=== PATIENT | male | born 1960 | race Two or more races ===

== ENCOUNTER 2017-11-30 13:38 | Emergency (ER) | payer OTHER ==
[~2017-11-30] VITALS: Ht 185.4 cm; Wt 97.1 kg
[~2017-11-30 13:38] MED LIST: ASA325 MG PO; COZAAR100 MG; COZAAR50 MG PO; HYZAAR 100-12.1 EACH PO; NORVASC5 MG; NORVASC5 MG PO; ULTRACET PO
== END 2017-11-30 20:51 | disposition home or self-care (01) ==
LOC: ER 13:38 → CPU-OBS 14:48 → ER 14:48
DX: R07.89 Other chest pain (principal)
CPT/HCPCS: G0378; G0379; 93005

== ENCOUNTER 2018-07-03 21:28 | Emergency (ER) | payer OTHER ==
[~2018-07-03] VITALS: Ht 185.4 cm; Wt 106.1 kg
[2018-07-04] MEDS ORDERED: DELTASONE20 MG PO (07:44)
[2018-07-05] MEDS ORDERED: CLEOCIN HCL300 MG PO (19:50)
[2018-07-05] MEDS ORDERED: INTESTINEX680 M1 PO (19:50)
[2018-07-05] MEDS ORDERED: KETO10TA2 PO (19:50)
== END 2018-07-04 07:55 | disposition home or self-care (01) ==
LOC: ER 21:28
DX: T78.3XXA Angioneurotic edema, initial encounter (principal); T50.995A Adverse effect of other drugs, medicaments and biological substances, initial encounter

== ENCOUNTER 2018-07-05 13:59 | Emergency (ER) | payer OTHER ==
[~2018-07-05] VITALS: Ht 185.4 cm; Wt 99.3 kg
[~2018-07-05 13:59] MED LIST changes: +DELTASONE20 MG PO
[2018-07-05] MEDS ORDERED: INTESTINEX680 M1 PO (19:50)
[2018-07-05] MEDS ORDERED: CLEOCIN HCL300 MG PO (19:50)
[2018-07-05] MEDS ORDERED: KETO10TA2 PO (19:50)
== END 2018-07-05 19:59 | disposition home or self-care (01) ==
LOC: ER 13:59
DX: T78.3XXA Angioneurotic edema, initial encounter (principal)

== ENCOUNTER 2025-03-21 19:55 | Emergency (ER) | payer OTHER ==
[~2025-03-21] VITALS: Ht 185.4 cm; Wt 103.4 kg
[~2025-03-21 19:55] MED LIST changes: +CLEOCIN HCL300 MG PO; +INTESTINEX680 M1 PO; +KETO10TA2 PO
[2025-03-21] MEDS ORDERED: NORVASC10 MG PO (19:59)
[2025-03-21] MEDS ORDERED: MICARDIS80 MG PO (19:59)
[2025-03-21] MEDS ORDERED: CLONIDINE HCL 0.1 MG TABLET PO ONE (23:47)
== END 2025-03-22 01:25 | disposition home or self-care (01) ==
LOC: ER 19:55
DX: K64.8 Other hemorrhoids (principal); R42 Dizziness and giddiness; I10 Essential (primary) hypertension; Z91.013 Allergy to seafood